=== PATIENT | female | born 1965 | race Caucasian/White ===

== ENCOUNTER 2016-11-19 08:49 | Day surgery (SDC) | payer OTHER ==
[~2016-11-19] VITALS: Ht 167.6 cm; Wt 90.7 kg
[2016-11-19 09:21] VITALS: BP 146/81
[2016-11-19 11:51] VITALS: BP 125/69
== END 2016-11-19 11:55 | disposition home or self-care (01) ==
LOC: GI 08:49
PROVIDERS: Internal Medicine Gastroenterology
PROC: 0DBG8ZZ Excision of Left Large Intestine, Via Natural or Artificial Opening Endoscopic (ICD-10-PCS; principal; 2016-11-19 09:30)
DX: Z12.11 Encounter for screening for malignant neoplasm of colon (principal); D12.4 Benign neoplasm of descending colon; L98.9 Disorder of the skin and subcutaneous tissue, unspecified; L98.419 Non-pressure chronic ulcer of buttock with unspecified severity; F17.210 Nicotine dependence, cigarettes, uncomplicated; Z68.33 Body mass index [BMI] 33.0-33.9, adult
CPT/HCPCS: 45378; J1200; J1610; J2250; J2310; J3010; J3490